=== PATIENT | male | born 1960 | race African-American/Black ===

== ENCOUNTER 2025-02-08 09:34 | Inpatient (IN) | payer OTHER, SELFPAY ==
[2025-02-08 10:51] LABS: #Basophils Less than 0.03 10x3/uL (0.0-0.2); #Eosinophils 0.08 10x3/uL (0.0-0.7); #Monocytes 0.83 10x3/uL (0.11-0.59); #Neutrophils 4.47 10x3/uL (1.40-6.50); %Basophils 0.1 % (0.0-1.0); %Eosinophils 1.0 % (0.0-10.0); %Lymphocytes 30.9 % (21.0-51.0); %Monocytes 10.5 % (0.0-10.0); %Neutrophils 56.9 % (42.0-75.0); Hematocrit 20.8 % (42.0-52.0); Hemoglobin 6.5 g/dL (14.0-18.0); Mean Corpuscular Hemoglobin 41.7 pg (27.0-31.0); Mean Corpuscular Volume 133.3 fL (78.0-98.0); Platelet Count 60 10x3/uL (130-400); Red Blood Cell (RBC) Count 1.56 mill/uL (4.70-6.10); White Blood Cell (WBC) Count 7.87 10x3/uL (4.8-10.8)
[2025-02-08 11:04] LABS: Acetaminophen Less than 10 mcg/mL (Less than 10); Salicylate Less than 8.0 mg/dL (Less than 8.0)
[2025-02-08 11:06] LABS: ALT (SGPT) 30 U/L (Less than 45); AST (SGOT) 99 U/L (11-34); Albumin 1.7 g/dL (3.1-4.5); Alkaline Phosphatase 84 U/L (40-110); Anion Gap 11 mmol/L (10-20); BUN (Urea Nitrogen) 18 mg/dL (8.4-25.7); Bilirubin, Total 10.2 mg/dL (0.3-1.2); Calc. Creatinine Clearance 0 mL/min (70-130); Calcium 8.5 mg/dL (7.8-10.44); Carbon Dioxide 29 mmol/L (23-31); Chloride 101 mmol/L (98-107); Globulin 6.1 g/dL (2.4-3.5); Glucose 84 mg/dL (80-115); Potassium 3.2 mmol/L (3.5-5.1); Sodium 138 mmol/L (136-145)
[2025-02-08] MEDS ORDERED: Iopamidol-370 76% 500 ML MDV (1 ML CHARGE) ONE (11:10)
[2025-02-08 11:22] LABS: Anisocytosis SLIGHT = 6-15 cells (100X) (0-5/hpf); Macrocytosis MARKED = >30 cells (100X) (0-5/hpf); Plasma Cells 0 % (0-0); Platelet Adequacy Comment Appears Decreased; Polychromasia SLIGHT = 2-3 cells (100X) (0-2/hpf); Target Cells SLIGHT = 2-5 cells (100X) (0-1/hpf)
[2025-02-08 12:04] LABS: Specific Gravity, Urine 1.025 (1.005-1.030)
[2025-02-08 12:06] LABS: Glucose, Urine (Dipstick) Unable to Interpret mg/dL (Negative); Leukocyte Unable to Interpret (Negative); Protein, Urine (Dipstick) Unable to Interpret mg/dL (Neg-Trace)
[2025-02-08 12:09] LABS: Bacteria/HPF Rare-Few HPF (None Seen); CAUTI Indications for Culture Alt mental st,lethar; RBC/HPF None Seen HPF (0-3); WBC/HPF 0-3 HPF (0-3)
[2025-02-08 12:10] LABS: Urine Culture Reflex No No
[2025-02-08 12:11] LABS: Cocaine Metabolite Screen Negative (Negative); THC/Cannabinoid Screen Negative (Negative); Tricyclic Screen Negative (Negative)
[2025-02-08] MEDS ORDERED: Lactulose 20 GM (30 mL) UDCUP ONE ×2 (15:24)
[2025-02-08 17:10] VITALS: BMI 38.9
[2025-02-08] MEDS: Lactulose 20 GM (30 mL) UDCUP PO SCH ×2 (18:25→20:49)
[2025-02-08] MEDS: Furosemide 40 MG (4 mL) VIAL SLOW IVP SCH (18:25)
[2025-02-08 18:44] LABS: INR-International Normal Ratio 3.2; Prothrombin Time 32.7 sec (12.0-14.7)
[2025-02-08 18:45] LABS: PTT 54.9 sec (22.9-36.1)
[2025-02-08] MEDS: Pantoprazole 40 MG VIAL IVP SCH (20:49)
[2025-02-08] MEDS: Multivitamins, Adult 10 ML, Folic Acid 1 MG, Thiamine HCl 100 MG, Admixture Fee 1 EACH ... IV SCH (23:17)
[2025-02-09 05:41] LABS: INR-International Normal Ratio 3.2; Prothrombin Time 32.8 sec (12.0-14.7)
[2025-02-09 05:43] LABS: #Basophils Less than 0.03 10x3/uL (0.0-0.2); #Eosinophils 0.09 10x3/uL (0.0-0.7); #Monocytes 1.09 10x3/uL (0.11-0.59); #Neutrophils 6.25 10x3/uL (1.40-6.50); %Basophils 0.2 % (0.0-1.0); %Eosinophils 0.9 % (0.0-10.0); %Lymphocytes 23.9 % (21.0-51.0); %Monocytes 11.0 % (0.0-10.0); %Neutrophils 63.4 % (42.0-75.0); Hematocrit 24.1 % (42.0-52.0); Hematocrit 24.2 % (42.0-52.0); Hemoglobin 7.9 g/dL (14.0-18.0); Mean Corpuscular Hemoglobin 38.3 pg (27.0-31.0); Mean Corpuscular Volume 117.0 fL (78.0-98.0); Platelet Count 58 10x3/uL (130-400); Red Blood Cell (RBC) Count 2.06 mill/uL (4.70-6.10); White Blood Cell (WBC) Count 9.87 10x3/uL (4.8-10.8)
[2025-02-09 05:52] LABS: ALT (SGPT) 33 U/L (Less than 45); AST (SGOT) 112 U/L (11-34); Albumin 1.7 g/dL (3.1-4.5); Alkaline Phosphatase 80 U/L (40-110); Anion Gap 13 mmol/L (10-20); BUN (Urea Nitrogen) 21 mg/dL (8.4-25.7); Bilirubin, Total 10.7 mg/dL (0.3-1.2); CK (CPK) 281 U/L (30-200); Calc. Creatinine Clearance 97 mL/min (70-130); Calcium 8.7 mg/dL (7.8-10.44); Carbon Dioxide 28 mmol/L (23-31); Chloride 101 mmol/L (98-107); Globulin 5.9 g/dL (2.4-3.5); Glucose 115 mg/dL (80-115); Iron 136 ug/dL (65-175); Iron Binding Capacity, Total 134 mcg/dL (261-462); Potassium 2.8 mmol/L (3.5-5.1); Sodium 139 mmol/L (136-145)
[2025-02-09 07:41] LABS: Free T4 (Free Thyroxine) 0.90 ng/dL (0.70-1.48); Vitamin B12 Greater than 2000 pg/mL (211-911)
[2025-02-09 08:00] LABS: HBSAB Concentration Less than 8.00 mIU/mL; Hep B Surf Ag NONREACTIVE S/CO (NonReactive)
[2025-02-09] MEDS ORDERED: Potassium Chloride 20 MEQ in Premix 1 BAG IVPB PRN (08:00)
[2025-02-09] MEDS ORDERED: Magnesium 2 GM/50 ML(in water) 2 GM in Premix 1 BAG IVPB PRN (08:00)
[2025-02-09] MEDS ORDERED: PHOS-NAK 1 PKT PACK PO PRN (08:00)
[2025-02-09 08:01] LABS: Hep A IgM AB NONREACTIVE (NonReactive); Hep A IgM S/CO 0.26 S/CO (0-0.79)
[2025-02-09 08:48] LABS: Hep B Core IgM Index 1.07 S/CO (0-0.79); Hep B Core Total Ab REACTIVE (NonReactive); Hep B Core Total Index 9.94 S/CO (0-0.79)
[2025-02-09 12:05] LABS: ANA Symphony (Qualitative) Negative (Negative); ANA Symphony (Quantitative) 0.4 Ratio (< 0.7 Negative); EliA Vaculitis New Method **** NEW METHOD ****; Mitochondrial Ab 2.2 U/mL (<4 Negative); dsDNA IgG Antibody 1.3 IU/mL (<10 Negative)
[2025-02-09] MEDS ORDERED: Sodium Bicarbonate 2.5 MEQ/5 ML SDV ONE (12:17)
[2025-02-09 12:40] LABS: Anion Gap 11 mmol/L (10-20); BUN (Urea Nitrogen) 21 mg/dL (8.4-25.7); Calc. Creatinine Clearance 100 mL/min (70-130); Calcium 8.7 mg/dL (7.8-10.44); Carbon Dioxide 29 mmol/L (23-31); Chloride 102 mmol/L (98-107); Glucose 132 mg/dL (80-115); Potassium 3.1 mmol/L (3.5-5.1); Sodium 139 mmol/L (136-145)
[2025-02-09 13:33] LABS: RBC Count-Automated (BF) 226 /cu.mm; WBC/Nucleated-Auto (BF) 56 /cu.mm
[2025-02-09 14:09] LABS: BF Segmented Neutrophils 19 %; Cell Count Non Hematic 24 %
[2025-02-09] MEDS: Electrolyte Replacement Protocol 1 EACH FS ONE (15:12)
[2025-02-09] MEDS: cefTRIAXone\\ROCEPHIN 2 GM in Sodium Chloride 0.9% 100 ML IVPB SCH (17:53)
[2025-02-09] MEDS: Albumin 25% 25 GM (100 mL) BOT IVPB SCH (20:02)
[2025-02-09 20:15] LABS: Potassium 3.0 mmol/L (3.5-5.1)
[2025-02-09] MEDS: Rifaximin 550 MG TAB PO SCH (21:29)
[2025-02-10] MEDS: Albumin 25% 25 GM (100 mL) BOT IVPB SCH ×2 (02:26→17:26)
[2025-02-10 04:21] LABS: Hematocrit 23.5 % (42.0-52.0); Hemoglobin 7.6 g/dL (14.0-18.0); Mean Corpuscular Hemoglobin 39.6 pg (27.0-31.0); Mean Corpuscular Volume 122.4 fL (78.0-98.0); Platelet Count 41 10x3/uL (130-400); Red Blood Cell (RBC) Count 1.92 mill/uL (4.70-6.10); White Blood Cell (WBC) Count 6.77 10x3/uL (4.8-10.8)
[2025-02-10 04:28] LABS: INR-International Normal Ratio 3.4; Prothrombin Time 34.4 sec (12.0-14.7)
[2025-02-10 04:29] LABS: PTT 58.9 sec (22.9-36.1)
[2025-02-10 04:32] LABS: ALT (SGPT) 38 U/L (Less than 45); AST (SGOT) 134 U/L (11-34); Albumin 2.3 g/dL (3.1-4.5); Alkaline Phosphatase 77 U/L (40-110); Anion Gap 16 mmol/L (10-20); BUN (Urea Nitrogen) 21 mg/dL (8.4-25.7); Bilirubin, Total 10.1 mg/dL (0.3-1.2); Calc. Creatinine Clearance 95 mL/min (70-130); Calcium 8.7 mg/dL (7.8-10.44); Carbon Dioxide 22 mmol/L (23-31); Chloride 102 mmol/L (98-107); Globulin 5.7 g/dL (2.4-3.5); Glucose 144 mg/dL (80-115); Potassium 4.1 mmol/L (3.5-5.1); Sodium 136 mmol/L (136-145)
[2025-02-10 04:51] LABS: Anisocytosis SLIGHT = 6-15 cells HPF (0-5); Macrocytosis MODERATE=16-30 cells HPF (0-5); Nucleated RBC (Manual Ct) 7 % (0); Platelet Adequacy Comment Platelets Decreased; Poikilocytosis SLIGHT = 6-15 cells HPF (0-5); Polychromasia SLIGHT = 2-3 cells HPF (0-2)
[2025-02-10] MEDS ORDERED: FLU (Fluarix Triv) 25-26 (6MOS UP)/PF 45 MCG/0.5 ML Syringe IM ONE (09:00)
[2025-02-10] MEDS: Furosemide 40 MG (4 mL) VIAL SLOW IVP SCH (11:20)
[2025-02-10] MEDS: Spironolactone 25 MG TAB PO SCH (11:34)
[2025-02-10] MEDS: Octreotide Acetate 1,250 MCG in Sodium Chloride 0.9% 250 ML 250 ML IVPB SCH (18:34)
[2025-02-10] MEDS: Lactulose 20 GM (30 mL) UDCUP PO SCH (20:54)
[2025-02-11 06:46] LABS: ALT (SGPT) 38 U/L (Less than 45); AST (SGOT) 111 U/L (11-34); Albumin 2.6 g/dL (3.1-4.5); Alkaline Phosphatase 74 U/L (40-110); Anion Gap 13 mmol/L (10-20); BUN (Urea Nitrogen) 22 mg/dL (8.4-25.7); Bilirubin, Total 10.2 mg/dL (0.3-1.2); Calc. Creatinine Clearance 77 mL/min (70-130); Calcium 8.8 mg/dL (7.8-10.44); Carbon Dioxide 21 mmol/L (23-31); Chloride 104 mmol/L (98-107); Globulin 5.2 g/dL (2.4-3.5); Glucose 166 mg/dL (80-115); Potassium 3.7 mmol/L (3.5-5.1); Sodium 134 mmol/L (136-145)
[2025-02-11 06:52] LABS: #Basophils Less than 0.03 10x3/uL (0.0-0.2); #Eosinophils 0.10 10x3/uL (0.0-0.7); #Monocytes 0.70 10x3/uL (0.11-0.59); #Neutrophils 3.01 10x3/uL (1.40-6.50); %Basophils 0.2 % (0.0-1.0); %Eosinophils 1.8 % (0.0-10.0); %Lymphocytes 30.3 % (21.0-51.0); %Monocytes 12.6 % (0.0-10.0); %Neutrophils 54.4 % (42.0-75.0); Hematocrit 20.2 % (42.0-52.0); Hemoglobin 7.1 g/dL (14.0-18.0); Mean Corpuscular Hemoglobin 45.2 pg (27.0-31.0); Mean Corpuscular Volume 128.7 fL (78.0-98.0); Platelet Count 42 10x3/uL (130-400); Red Blood Cell (RBC) Count 1.57 mill/uL (4.70-6.10); White Blood Cell (WBC) Count 5.54 10x3/uL (4.8-10.8)
[2025-02-11 07:53] LABS: INR-International Normal Ratio 3.1; Prothrombin Time 32.5 sec (12.0-14.7)
[2025-02-11 07:54] LABS: PTT 62.2 sec (22.9-36.1)
[2025-02-12 05:39] LABS: #Basophils Less than 0.03 10x3/uL (0.0-0.2); #Eosinophils 0.13 10x3/uL (0.0-0.7); #Monocytes 0.81 10x3/uL (0.11-0.59); #Neutrophils 3.43 10x3/uL (1.40-6.50); %Basophils 0.3 % (0.0-1.0); %Eosinophils 2.1 % (0.0-10.0); %Lymphocytes 29.4 % (21.0-51.0); %Monocytes 12.9 % (0.0-10.0); %Neutrophils 54.8 % (42.0-75.0); Hematocrit 22.7 % (42.0-52.0); Hemoglobin 7.1 g/dL (14.0-18.0); Mean Corpuscular Hemoglobin 37.4 pg (27.0-31.0); Mean Corpuscular Volume 119.5 fL (78.0-98.0); Platelet Count 45 10x3/uL (130-400); Red Blood Cell (RBC) Count 1.90 mill/uL (4.70-6.10); White Blood Cell (WBC) Count 6.26 10x3/uL (4.8-10.8)
[2025-02-12 05:51] LABS: INR-International Normal Ratio 3.1; PTT 60.1 sec (22.9-36.1); Prothrombin Time 32.4 sec (12.0-14.7)
[2025-02-12 05:54] LABS: ALT (SGPT) 39 U/L (Less than 45); AST (SGOT) 116 U/L (11-34); Albumin 2.4 g/dL (3.1-4.5); Alkaline Phosphatase 73 U/L (40-110); Anion Gap 15 mmol/L (10-20); BUN (Urea Nitrogen) 25 mg/dL (8.4-25.7); Bilirubin, Total 10.4 mg/dL (0.3-1.2); Calc. Creatinine Clearance 69 mL/min (70-130); Calcium 8.8 mg/dL (7.8-10.44); Carbon Dioxide 24 mmol/L (23-31); Chloride 103 mmol/L (98-107); Globulin 5.2 g/dL (2.4-3.5); Glucose 122 mg/dL (80-115); Potassium 3.5 mmol/L (3.5-5.1); Sodium 138 mmol/L (136-145)
[2025-02-12 15:14] LABS: A/G Ratio 0.4 (0.7-1.7); Albumin 2.2 g/dL (2.9-4.4); Alpha 1 0.1 g/dL (0.0-0.4); Alpha 2 0.4 g/dL (0.4-1.0); Beta 0.9 g/dL (0.7-1.3); Gamma 4.1 g/dL (0.4-1.8); Globulin, Total 5.4 g/dL (2.2-3.9); M-Spike Not Observed g/dL (Not Observed)
[2025-02-12] MEDS: Albumin 25% 25 GM (100 mL) BOT IVPB SCH (18:07)
[2025-02-13 04:37] LABS: INR-International Normal Ratio 3.2; Prothrombin Time 33.2 sec (12.0-14.7)
[2025-02-13 04:38] LABS: PTT 62.2 sec (22.9-36.1)
[2025-02-13 04:46] LABS: ALT (SGPT) 37 U/L (Less than 45); AST (SGOT) 114 U/L (11-34); Albumin 2.8 g/dL (3.1-4.5); Alkaline Phosphatase 70 U/L (40-110); Anion Gap 14 mmol/L (10-20); BUN (Urea Nitrogen) 25 mg/dL (8.4-25.7); Bilirubin, Total 11.5 mg/dL (0.3-1.2); Calc. Creatinine Clearance 63 mL/min (70-130); Calcium 9.1 mg/dL (7.8-10.44); Carbon Dioxide 25 mmol/L (23-31); Chloride 103 mmol/L (98-107); Globulin 5.0 g/dL (2.4-3.5); Glucose 101 mg/dL (80-115); Potassium 3.5 mmol/L (3.5-5.1); Sodium 138 mmol/L (136-145)
[2025-02-13 04:50] LABS: #Basophils 0.03 10x3/uL (0.0-0.2); #Eosinophils 0.11 10x3/uL (0.0-0.7); #Monocytes 1.02 10x3/uL (0.11-0.59); #Neutrophils 4.03 10x3/uL (1.40-6.50); %Basophils 0.4 % (0.0-1.0); %Eosinophils 1.5 % (0.0-10.0); %Lymphocytes 28.2 % (21.0-51.0); %Monocytes 14.0 % (0.0-10.0); %Neutrophils 55.1 % (42.0-75.0); Hematocrit 22.3 % (42.0-52.0); Hemoglobin 6.8 g/dL (14.0-18.0); Mean Corpuscular Hemoglobin 37.4 pg (27.0-31.0); Mean Corpuscular Volume 122.5 fL (78.0-98.0); Platelet Count 42 10x3/uL (130-400); Red Blood Cell (RBC) Count 1.82 mill/uL (4.70-6.10); White Blood Cell (WBC) Count 7.31 10x3/uL (4.8-10.8)
[2025-02-13 16:49] LABS: Actual Bicarbonate (HCO3a) 23.7 mEq/L (22-28); Base Excess (BEa) -1.4 mEq/L (-2.0 to +3.0); CO2 Tension 40.9 mmHg (35.0-45.0); Calcium, Ionized (arterial) 1.12 mmol/L (1.12-1.30); Hematocrit-ABG 27 % (42.0-52.0); Hemoglobin (Hb) 9.1 g/dL (14.0-18.0); Potassium - ABG Lab 3.33 mmol/L (3.70-5.30); pH, Arterial 7.380 (7.35-7.45)
[2025-02-13 16:50] LABS: ALV-art Gradient 247.975 mmHg (0-20); O2 Tension (PaO2), arterial 57.4 mmHg (> 80.0); Puncture Site Right Radial artery
[2025-02-13 17:12] VITALS: BP 128/88; TEMP 98.6
[2025-02-13 18:28] LABS: Hematocrit 25.6 % (42.0-52.0); Hemoglobin 7.9 g/dL (14.0-18.0)
[2025-02-13] MEDS ORDERED: Albumin 25% 25 GM (100 mL) BOT IVPB SCH (23:59)
== END 2025-02-13 22:13 | disposition short-term general hospital (02) | DRG 432 ==
LOC: ERS 09:34 → 2NO 15:30 → IMCU/EMU 02-13 17:11
PROVIDERS: ADMIT Internal Medicine; ATTEND Student in an Organized Health Care Education/Training Program
PROC: 0W9G3ZZ Drainage of Peritoneal Cavity, Percutaneous Approach (ICD-10-PCS; principal; 2025-02-09)
PROC: 3E03329 Introduction of Other Anti-infective into Peripheral Vein, Percutaneous Approach (ICD-10-PCS; 2025-02-09)
PROC: 30233J1 Transfusion of Nonautologous Serum Albumin into Peripheral Vein, Percutaneous Approach (ICD-10-PCS; 2025-02-10)
PROC: 3E02340 Introduction of Influenza Vaccine into Muscle, Percutaneous Approach (ICD-10-PCS; 2025-02-10)
PROC: 30233L1 Transfusion of Nonautologous Fresh Plasma into Peripheral Vein, Percutaneous Approach (ICD-10-PCS; 2025-02-10)
PROC: 30233K1 Transfusion of Nonautologous Frozen Plasma into Peripheral Vein, Percutaneous Approach (ICD-10-PCS; 2025-02-10)
PROC: 4A033R1 Measurement of Arterial Saturation, Peripheral, Percutaneous Approach (ICD-10-PCS; 2025-02-13)
PROC: 30233N1 Transfusion of Nonautologous Red Blood Cells into Peripheral Vein, Percutaneous Approach (ICD-10-PCS; 2025-02-13)
PROC: 5A09357 Assistance with Respiratory Ventilation, Less than 24 Consecutive Hours, Continuous Positive Airway Pressure (ICD-10-PCS; 2025-02-13)
DX: K70.11 Alcoholic hepatitis with ascites (principal); E43 Unspecified severe protein-calorie malnutrition; G93.41 Metabolic encephalopathy; J96.01 Acute respiratory failure with hypoxia; N17.9 Acute kidney failure, unspecified; E87.1 Hypo-osmolality and hyponatremia; K76.82 Hepatic encephalopathy; K76.89 Other specified diseases of liver; F32.A Depression, unspecified; F17.210 Nicotine dependence, cigarettes, uncomplicated; K21.9 Gastro-esophageal reflux disease without esophagitis; Z68.38 Body mass index [BMI] 38.0-38.9, adult; E87.6 Hypokalemia; E88.09 Other disorders of plasma-protein metabolism, not elsewhere classified; E87.8 Other disorders of electrolyte and fluid balance, not elsewhere classified; N18.30 Chronic kidney disease, stage 3 unspecified; E11.22 Type 2 diabetes mellitus with diabetic chronic kidney disease; D63.1 Anemia in chronic kidney disease; I12.9 Hypertensive chronic kidney disease with stage 1 through stage 4 chronic kidney disease, or unspecified chronic kidney disease; D69.6 Thrombocytopenia, unspecified; Z23 Encounter for immunization
CPT/HCPCS: 36415; 36416; 36430; 36600; 49083; 70450; 71045; 72125; 74177; 76705; 80053; 80306; 80307; 81001; 81256; 82042; 82103; 82105; 82140; 82550; 82607; 82728; 82805; 83010; 83516; 83540; 83550; 83605; 83615; 83880; 84155; 84157; 84165; 84439; 84443; 85025; 85060; 85610; 85730; 86015; 86038; 86225; 86704; 86705; 86706; 86708; 86709; 86850; 86900; 86901; 87070; 87205; 87340; 87902; 89051; 93005; 93306; 94660; 94760; J0696; J1630; J1940; J2354; J2470; J3411; J7042; J7050; P9016; P9047; P9059; Q9967